=== PATIENT | male | born 1965 | race Caucasian/White ===

== ENCOUNTER 2025-01-15 17:34 | Inpatient (IN) ==
[2025-01-15 18:03] LABS: Basophils # (auto) 0.09 K/uL (0.00-0.20); Basophils % (auto) 1.3 %; Eosinophils # (auto) 0.07 K/uL (0.00-0.50); Hematocrit (blood only) 24.4 % (42.0-52.0); Immature Granulocytes # (auto) 0.13 K/uL (0.01-0.20); Immature Granulocytes % (auto) 1.8 %; Lymphocytes # (auto) 0.85 K/uL (1.20-3.40); Mean Corpuscular Hemoglobin 22.2 pg (25.0-34.0); Mean Corpuscular Hgb Conc 32.8 g/dL (32.0-36.0); Mean Corpuscular Volume 67.8 fL (80.0-100.0); Monocytes # (auto) 0.75 K/uL (0.11-0.59); Monocytes % (auto) 10.5 %; Neutrophils # (auto) 5.22 K/uL (1.40-6.50); Neutrophils % (auto) 73.4 %; RDW Coefficient of Variation 15.1 % (11.5-14.5); RDW Standard Deviation 37.1 fL (36.4-46.3); White Blood Count 7.11 K/ul (4.8-10.8)
[2025-01-15 18:09] LABS: Mean Platelet Volume 7.8 fL (9.4-12.4); Platelet Count 542 K/uL (130-400)
[2025-01-15 18:20] LABS: Albumin Level 3.9 gm/dl (3.4-5.0); Bilirubin,Total 0.2 mg/dl (0.2-1.0); Calcium 8.9 mg/dl (8.6-10.3); Creatinine Clr Calc Pharmacy 89.6 ml/min; Globulin 3.8 gm/dl (2.5-4.0); Total Protein 7.7 gm/dl (6.0-8.3)
[2025-01-15 18:29] LABS: Microcytosis Present; Polychromasia 1+
--- NOTE | 2025-01-15 18:39 | Emergency Department Note ---
Impression & Plan Acute hyponatremia, Acute hyperkalemia, Weakness, Anemia ED Provider Note NAME: ETTA [id number] NAE AGE: 59 SEX: M : 1965 ARRIVES VIA: Walk-In INFORMANT: Patient, ED PROVIDER(S): Torey Rosenbaum DO CHIEF COMPLAINT: Generalized weakness HPI: The patient is a 59-year-old male who presented to the emergency department for an evaluation of generalized weakness. The patient has been having labs as an outpatient done. He was noted to have low sodium and was sent to the emergency department today for further evaluation. He states he does not drink too much water during the day but drinks about 6 glasses of water a day. He denies having any recent illnesses. He is currently being treated for a small abrasion above his right eye. He denies having any vomiting. He denies having any chest pain. ROS: See above HPI for pertinent positives & negatives. A total of 10 systems reviewed and were otherwise negative. PAST MEDICAL HISTORY: See Below PAST SURGICAL HISTORY: See Below FAMILY HISTORY: See Below SOCIAL HISTORY: See Below HOME MEDICATIONS: See Below ALLERGIES: See Below VITALS: See Below PHYSICAL EXAMINATION: GENERAL: Patient is awake alert in no acute distress patient is resting comfortably and showing no signs of anxiety EYES: The conjunctivae are clear. The pupils are round and reactive. EARS, NOSE, MOUTH AND THROAT: The nose is without any evidence of any deformity. NECK: The neck is nontender and supple. RESPIRATORY: Diminished breath sounds are noted in the left upper lung field. There is no tachypnea or conversational dyspnea. CARDIOVASCULAR: Regular rate and rhythm noted there no murmurs rubs or gallops normal S1 normal S2. GASTROINTESTINAL: The abdomen is soft. Abdomen is nontender. MUSCULOSKELETAL/EXTREMITIES: There is no evidence of gross deformity full range of motion is noted in the hips and shoulders. SKIN: There is no obvious evidence of any rash. There are no petechiae, pallor or cyanosis noted. NEUROLOGIC: Patient is awake alert and oriented x3 strength is symmetric patellar reflexes are 1+ bilaterally MEDICAL DECISION MAKING: The patient is a 59-year-old male who presented to the emergency department for an evaluation of generalized weakness. The patient has had some degree of hyponatremia recently. He was sent to the emergency department because of worsening hyponatremia. I discussed the patient's laboratory and radiographic studies with him. He does have a history of psychiatric illness. There was some discussion as to whether or not this could be psychogenic polydipsia but the patient denies this. Given the patient's degree of hyponatremia I discussed his condition with the on-call [facility] hospitalist. They have agreed to evaluate the patient in the emergency department. Triage Nursing notes reviewed. Prior medical records reviewed Vital Signs: reviewed and remarkable for elevated blood pressure and tachycardia. Differential diagnosis: Infection, dehydration, metabolic abnormality, hypo/hyperglycemia, electrolyte disturbance, anemia, hypoxia, cardiac sources, intracerebral event, toxicologic, neurologic, as well as other pathologies. ER treatment provided: See below Diagnostics interpreted by me: ECG: EKG was obtained in the emergency department. My interpretation is sinus tachycardia at 103 bpm. There is no ectopy. There is no acute ST segment abnormalities noted. This was compared to a tracing from July 07, 2019. There was an increase in the rate otherwise no changes noted. Cardiac Monitoring: An order was placed for continuous cardiac monitoring. The monitor shows a rate of 98 bpm with sinus rhythm. Laboratory studies: As stated above and show below. Imaging studies: See below. Radiographic imaging was reviewed by myself Consultation(s): Dr. Bland was notified about the patient. Past Med/Surg History Problem List (Updated 01/15/25 @ 19:36 by Torey Rosenbaum DO) Anemia (Acute) Weakness (Acute) Acute hyperkalemia (Acute) Acute hyponatremia (Acute) Ventricular tachycardia (Acute) Chest pain (Acute) Hyperlipidemia (Chronic) Headache (Acute) COPD (chronic obstructive pulmonary disease) (Chronic) Social History Smoking Status: Current every day smoker Tobacco Type: Smokeless Tobacco (Dip or Chew) Preferred Language: Lao Allergies Allergies Allergy/AdvReac Type Severity Reaction Status Date / Time codeine Allergy Severe TONGUE Verified 06/22/16 18:01 SWELLS, MORPHINE, HYDROCODONE OK Penicillins Allergy Unknown Verified 06/22/16 18:01 Home Meds Home Medications Medication Instructions Recorded Confirmed Albuterol (Ventolin) 2 puff inhalation Q6HR PRN ##0 03/21/09 Trazodone Hcl (Trazodone) 200 mg PO HS ##0 03/21/09 Aspirin (Aspirin EC Low Dose) 81 mg PO DAILY ##0 05/30/15 BUSPIRONE HCL (BUSPAR) 15 mg PO BID #0 tabs 05/30/15 CICLESONIDE (ALVESCO) 1 puff inhalation BID ##0 05/30/15 IPRATROPIUM-ALBUTEROL (DUONEB) 1 amp inhalation Q4H PRN Shortness 05/30/15 of Breath #0 inhalations Levothyroxine Sodium (Synthroid) 175 mcg PO DAILY ##0 05/30/15 NIACIN (NIACIN SR) 250 mg PO HS ##0 05/30/15 Paroxetine (Paroxetine HCl) 20 mg PO DAILY ##0 05/30/15 Ranitidine (Zantac) 150 mg PO BID #0 tabs 05/30/15 Risperidone (Risperdal) 1.5 mg PO HS #0 tabs 05/30/15 Tiotropium Corning (Spiriva 1 puff inhalation DAILY #0 Inhalers 05/30/15 Handihaler) Results & Data (ED) Vital Signs Vital Signs - 24 hr 01/15/25 17:39 01/15/25 18:42 01/15/25 18:46 Temperature 36.7 C Temperature Source Skin Pulse Rate 107 H 95 H Pulse Rate [Apical] 103 H Respiratory Rate 16 20 Respiratory Effort / Characteristics Non-Labored Spontaneous Respiratory Depth Normal Respiratory Pattern Regular Blood Pressure 150/84 H Blood Pressure [Right Arm] 142/77 H Blood Pressure Mean 106 Blood Pressure Mean [Right Arm] 98 Pulse Oximetry 95 98 Oxygen Delivery Method Room Air Room Air Sepsis Recent Fever Within 48 Hours No Sepsis New/Unexplained Change in Mental Status N/A Sepsis Action Taken by Nursing No Action Required Home Medications Current Medication List: was personally reviewed by me Laboratory Data Attestation: I reviewed the patient's lab results. 01/15/25 17:47 01/15/25 17:47 Lab Results 01/15/25 Range/Units 17:47 WBC 7.11 (4.8-10.8) K/ul RBC 3.60 L (4.70-6.10) M/uL Hgb 8.0 L (14.0-18.0) g/dl Hct 24.4 L (42.0-52.0) % MCV 67.8 L (80.0-100.0) fL MCH 22.2 L (25.0-34.0) pg MCHC 32.8 (32.0-36.0) g/dL RDW Std Deviation 37.1 (36.4-46.3) fL RDW Coeff of Morris 15.1 H (11.5-14.5) % Plt Count 542 H (130-400) K/uL MPV 7.8 L (9.4-12.4) fL Immature Gran % (Auto) 1.8 % Neut % (Auto) 73.4 % Lymph % (Auto) 12.0 % Ballard % (Auto) 10.5 % Eos % (Auto) 1.0 % Baso % (Auto) 1.3 % Neut # (Auto) 5.22 (1.40-6.50) K/uL Lymph # (Auto) 0.85 L (1.20-3.40) K/uL Ballard # (Auto) 0.75 H (0.11-0.59) K/uL Eos # (Auto) 0.07 (0.00-0.50) K/uL Baso # (Auto) 0.09 (0.00-0.20) K/uL Immature Gran # (Auto) 0.13 (0.01-0.20) K/uL Polychromasia 1+ Microcytosis Present Sodium 117 L* (136-145) mmol/L Potassium 6.0 H (3.5-5.1) mmol/L Chloride 88 L (98-107) mmol/L Carbon Dioxide 25 (21-32) mmol/L Anion Gap 4 (3-11) BUN 16 (6-23) mg/dl Creatinine 0.94 (0.6-1.4) mg/dl Est Cr Clr Drug Dosing 89.6 ml/min eGFR 94.55 BUN/Creatinine Ratio 17.0 (10-20) Glucose 186 H (70-99(Fasting)) mg/dl Osmolality 256 L (280-300) mOsm/kg Calcium 8.9 (8.6-10.3) mg/dl Total Bilirubin 0.2 (0.2-1.0) mg/dl AST 113 H (13-39) U/L ALT 76 H (7-52) U/L Alkaline Phosphatase 117 H (34-104) U/L Total Protein 7.7 (6.0-8.3) gm/dl Albumin 3.9 (3.4-5.0) gm/dl Globulin 3.8 (2.5-4.0) gm/dl Albumin/Globulin Ratio 1.0 (0.9-2) Imaging Data Attestation: I personally reviewed and interpreted this imaging study as follows: My Impression: 1 view chest x-ray was obtained in the emergency department. My interpretation is no free air or definite filtrate, final report below. Radiologist's Impression: Chest X-Ray 01/15/25 18:30 INDICATION: Chest pain. TECHNIQUE: Frontal radiograph of the chest. COMPARISON: Radiograph from 06/20/2016. FINDINGS: Cardiomegaly. Mild pulmonary vascular congestion. No infiltrate, pleural effusion or pneumothorax. No acute osseous abnormality evident. IMPRESSION: Mild pulmonary vascular congestion. Electronically signed by David Prieto 01-15-2025 6:57 PM Discharge Plan Visit Data Chief Complaint: Abnormal Labs/Diagnostic Testing Stated Complaint: LOW SODIUM ED Provider: Torey Rosenbaum Discharge Problem: Acute hyponatremia, Acute hyperkalemia, Weakness, Anemia Patient Disposition: Being Evaluated by Hospitalist Forms Stand Alone Forms: My [facility] Prescriptions Prescriptions: No Action Albuterol (Ventolin) inhaler 2 puff Inhalation Q6HR PRN Qty: 0 Trazodone Hcl (Trazodone) 100 MG tablet 200 mg PO HS Qty: 0 Patient Comments: CRUSH 2 TABLETS AT BEDTIME CICLESONIDE (ALVESCO) 160 MCG/ACT AER 1 puff Inhalation BID Qty: 0 Aspirin (Aspirin EC Low Dose) 81 MG ENTERIC COATED TAB 81 mg PO DAILY Qty: 0 BUSPIRONE HCL (BUSPAR) 15 MG tablet 15 mg PO BID Qty: 0 Patient Comments: CRUSH TABLET Levothyroxine Sodium (Synthroid) 175 MCG tablet 175 mcg PO DAILY Qty: 0 NIACIN (NIACIN SR) 250 MG capsule 250 mg PO HS Qty: 0 Paroxetine (Paroxetine HCl) 20 MG tablet 20 mg PO DAILY Qty: 0 Risperidone (Risperdal) 0.5 MG tablet 1.5 mg PO HS Qty: 0 Patient Comments: CRUSH 3 TABLET AT BEDTIME Tiotropium Corning (Spiriva Handihaler) 18 MCG/ AEROSOL,POWDR 1 puff Inhalation DAILY Qty: 0 Ranitidine (Zantac) 150 MG tablet 150 mg PO BID Qty: 0 IPRATROPIUM-ALBUTEROL (DUONEB) 3 ML NEBULIZR-SOLN 1 amp Inhalation Q4H PRN (Reason: Shortness of Breath) Qty: 0 Referrals Referrals: [facility] [Primary Care Provider] -
--- NOTE | 2025-01-15 18:57 | XRay Report ---
INDICATION: Chest pain. TECHNIQUE: Frontal radiograph of the chest. COMPARISON: Radiograph from 06/20/2016. FINDINGS: Cardiomegaly. Mild pulmonary vascular congestion. No infiltrate, pleural effusion or pneumothorax. No acute osseous abnormality evident. IMPRESSION: Mild pulmonary vascular congestion. Electronically signed by David Prieto 01-15-2025 6:57 PM
--- NOTE | 2025-01-15 19:37 | History & Physical Report ---
Date of Service January 15, 2025 Assessment & Plan (1) Acute hyponatremia: (2) Acute hyperkalemia: (3) COPD (chronic obstructive pulmonary disease): (4) Hyperlipidemia: (5) Anemia: (6) T2DM (type 2 diabetes mellitus): (7) Mood disorder: Plan 59 yo male PMHx T2DM, bipolar disorder, hypothyroidism, T2DM, COPD, GERD presents from [facility] for ~one week history of dizziness, GARCIA, and fatigue found to to have lab abnormalities. 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 Will hold depakote Urine legionella ordered Fluid restriction 1L Salt tabs ordered Serial BMP #Hyperkalemia Given D50 and 10U insulin Started on Lokelma Serial BMP #Anemia Unclear etiology FOB ordered Will order iron studies Denies hematuria or melena #Mood Disorder Continue Lamictal Depakote held as above Continue home hydroxyzine, mirtazipine #T2DM Continue metformin #COPD Continue home inhalers, montelukast #GERD Continue pantoprazole #Hypothyroidism Continue synthroid FENGI: T2DM diet, fluid restriction 1L Code status: full code DVT prophylaxis: Lovenox Isolation: none Disposition: PCU History of Present Illness Primary Care Provider: JITENDRA Stantonshanell 59 yo male PMHx T2DM, bipolar disorder, hypothyroidism, T2DM, COPD, GERD presents from [facility] for ~one week history of dizziness, GARCIA, and fatigue found to to have lab abnormalities. Had labs checked at the [facility] one week ago and was found to be hyponatremic. States that he had been in his usual state of health without dietary or medication changes. ED course: Found to be hyponatremic, hyperkalemic, hypochloremic, transaminitis and with thrombocytosis on labs. EKG without changes Allergies Allergy/AdvReac Type Severity Reaction Status Date / Time codeine Allergy Severe TONGUE Verified 01/15/25 21:31 SWELLS, MORPHINE, HYDROCODONE OK Penicillins Allergy Unknown Unknown Verified 01/15/25 21:31 Home Medications Medication Instructions Recorded Confirmed Type acetaminophen 500 mg tablet 1,000 mg PO BID 01/15/25 01/15/25 History albuterol sulfate 90 mcg/actuation 2 puff inhalation QID PRN 01/15/25 01/15/25 History aerosol inhaler DIRECTED aspirin 325 mg tablet 325 mg PO DAILY 01/15/25 01/15/25 History calcium 600 mg (as 1 tab PO BID 01/15/25 01/15/25 History carbonate)-vitamin D3 10 mcg (400 unit) tablet (Calcium 600 + D(3)) capsaicin 0.025 % topical cream 1 applic topical BID PRN Pain 01/15/25 01/15/25 History ciclesonide 160 mcg/actuation 1 puff inhalation BID 01/15/25 01/15/25 History aerosol inhaler (Alvesco) diclofenac sodium 100 mg 100 mg PO BID PRN Pain 01/15/25 01/15/25 History tablet,extended release 24 hr divalproex 250 mg tablet,delayed 250 mg PO BID 01/15/25 01/15/25 History release divalproex 250 mg tablet,delayed See Rx Instructions .Route .COMPLEX 01/15/25 01/15/25 History release docusate sodium 100 mg capsule 100 mg PO BID 01/15/25 01/15/25 History duloxetine 60 mg capsule,delayed 60 mg PO HS 01/15/25 01/15/25 History release hydroxyzine pamoate 50 mg capsule 150 mg PO HS 01/15/25 01/15/25 History lamotrigine 25 mg tablet (Lamictal) 25 mg PO DAILY 01/15/25 01/15/25 History levothyroxine 100 mcg tablet 100 mcg PO QAM 01/15/25 01/15/25 History levothyroxine 75 mcg tablet 75 mcg PO QAM 01/15/25 01/15/25 History metformin 1,000 mg tablet 1,000 mg PO BID 01/15/25 01/15/25 History metformin 500 mg tablet 500 mg PO .DAILY AT NOON 01/15/25 01/15/25 History mirtazapine 15 mg tablet 15 mg PO HS 01/15/25 01/15/25 History montelukast 10 mg tablet 10 mg PO DAILY 01/15/25 01/15/25 History pantoprazole 40 mg tablet,delayed 40 mg PO DAILY 01/15/25 01/15/25 History release tamsulosin 0.4 mg capsule 0.4 mg PO QPM 01/15/25 01/15/25 History umeclidinium 62.5 mcg/actuation 1 inh inhalation DAILY 01/15/25 01/15/25 History blister powder for inhalation (Incruse Ellipta) Past Med/Surg History Problem List (Updated 01/16/25 @ 00:33 by Mejia Arreaga DO) Mood disorder T2DM (type 2 diabetes mellitus) Anemia (Acute) Weakness (Acute) Acute hyperkalemia (Acute) Acute hyponatremia (Acute) Ventricular tachycardia (Acute) Chest pain (Acute) Hyperlipidemia (Chronic) Headache (Acute) COPD (chronic obstructive pulmonary disease) (Chronic) Social History Smoking Status: Never smoker Tobacco Type: Smokeless Tobacco (Dip or Chew) Second Hand Exposure: No; Do You Dip or Chew Tobacco: Yes; Tobacco Cessation Education Requested by Patient: No Hx Alcohol Use: No Hx Substance Use: No Preferred Language: Fijian Communication Ability: Effective Hammer Driver Required: No Beliefs That Will Affect Care: None Current Living Situation: Other Other Information That Helps Us Care for You: No Feels Safe at Home: Yes Safety Concerns: Feels Safe At This Time Assistive Devices: None Review of Systems Review of Systems: reviewed, per HPI Physical Exam Physical Exam: Constitutional: well-appearing, no acute distress HEENT: NCAT, no conjunctival injection CV: regular rhythm, no murmur appreciated, extremities well-perfused, no LE edema Resp: CTABL, no wheezes/rales/rhonchi appreciated, no increased work of breathing GI: nondistended MSK: no gross deformities appreciated Skin: warm, dry, no rash appreciated Neuro: alert, oriented, no focal neurologic deficit appreciated Results & Data Results & Data Vital Signs (Past 12 Hours) Vital Signs Temp Pulse Pulse Resp BP BP Pulse Ox 01/15/25 18:46 103 H 20 142/77 H 98 01/15/25 18:42 95 H 01/15/25 17:39 36.7 C 107 H 16 150/84 H 95 O2 Del Method 01/15/25 18:46 Room Air 01/15/25 18:42 01/15/25 17:39 Room Air Supervising Physician Co-Signing Physician Notes I personally saw and examined the patient. I independently reviewed the labs, EKG, imaging, problem list, medication list, past medical history and family history. I verified all rios points and agree with resident physician Dr Mejia Arreaga DO with the following exceptions and/or additions: 59 year old male presents to the ER with abnormal labs. Worsening hyponatremia over days. Currently not having any symptoms following hypertonic saline, nausea and dizziness prior to this. No melena, hematochezia, hematemesis, hemoptysis O/E HS RRR, no murmurs, Chest CTAB, Abdo SNT, no CVA tenderness A/P Hyponatremia / SIADH - likely related to Depakote, will discontinue. TSH WNL, Cortisol with AM labs. Repeat labs following hypertonic saline 3% 100ml. Fluid restrict. Start NaCl PO tomorrow pending repeat labs overnight Hyperkalemia - Insulin/Dextrose, Lokelma, repeat levels following this Elevated LFTs - suspect also secondary to Depakote, stop acetaminophen, US liver, repeat levels in AM with INR Microcytic anemia - ferritin, iron studies with AM labs, FOB Resident Activity Tracking Resident Involvement: Resident Care Provided Care Provided: Adult Hospital Medicine
[2025-01-15] MEDS ORDERED: DEXTROSE 50% 50 ML SYRINGE IV ONE (20:40)
[2025-01-15] MEDS ORDERED: LANTUS PER UNIT CHARGE SQ ONE (20:41)
[2025-01-15] MEDS ORDERED: STAT IV/IM STA (20:42)
[2025-01-15] MEDS ORDERED: SODIUM CHLORIDE 0.9% 1,000 ML IV SCH (20:45)
[2025-01-15] MEDS: DEXTROSE 50% 50 ML SYRINGE IV STA (21:01)
[2025-01-15] MEDS: INSULIN HUMAN REGULAR PER UNIT 10 UNITS in SYRINGE 9.9 ML IV STA (21:04)
[2025-01-15] MEDS: SODIUM ZIRCONIUM CYCLOSILICATE 10 GM PACKET PO STA (21:05)
[2025-01-15] MEDS: SODIUM CHLORIDE 3 % 100 ML IV STA (21:06)
[2025-01-15 21:18] LABS: Appearance Urine Clear (Clear); Bilirubin Urine Negative (Negative); Blood Urine Negative (Negative); Color Urine Yellow; Glucose Urine UA 1+ (Negative); Ketones Urine Negative (Negative); Leukocyte Esterase Urine Negative (Negative); Nitrite Urine Negative (Negative); Protein Urine Negative (Negative); Specific Gravity Urine 1.009 (1.000-1.030); Urobilinogen Urine Negative (Negative); pH Urine 7.5 (4.5-7.5)
[2025-01-15] MEDS ORDERED: ALUMINUM/MAGNESIUM SUSP 30 ML UDC PO PRN (22:13)
[2025-01-15] MEDS ORDERED: POLYETHYLENE (MIRALAX) 17 GM PACK PO PRN (22:13)
[2025-01-15] MEDS ORDERED: MAGNESIUM HYDROXIDE SUSP 30 ML UDC PO PRN (22:13)
[2025-01-15] MEDS ORDERED: ONDANSETRON INJ 2 MG/ML 2 ML VIAL IV PRN (22:13)
[2025-01-15] MEDS: CARBOHYDRATES FOR HYPOGLYCEMIA PO PRN (22:17)
[2025-01-15] MEDS ORDERED: GLUCAGON FOR INJ 1 MG VIAL SQ PRN (22:27)
[2025-01-15] MEDS ORDERED: DEXTROSE 50% 50 ML SYRINGE IV PRN (22:27)
[2025-01-15] MEDS ORDERED: GLUCOSE 10 TAB/TUBE PO PRN (22:27)
[2025-01-15] MEDS ORDERED: GLUCOSE 40% GEL 15 GM TUBE PO PRN (22:27)
[2025-01-15] MEDS: ACETAMINOPHEN 500 MG TAB PO PRN (22:30)
[2025-01-15 22:45] LABS: Thyroid Stimulating Hormone 2.845 uIu/ml (0.300-4.500)
[2025-01-15] MEDS: ENOXAPARIN INJ 40 MG/0.4 ML SYR SQ SCH (22:57)
[2025-01-16 01:40] LABS: BUN Creatinine Ratio 13.6 (10-20); Calcium 9.2 mg/dl (8.6-10.3); Creatinine Clr Calc Pharmacy 94.3 ml/min; Potassium 5.9 mmol/L (3.5-5.1)
[2025-01-16 01:53] LABS: Prothrombin Time 10.7 Seconds (9.0-12.0)
--- NOTE | 2025-01-16 03:21 | Billing Data ---
Date of Service January 15, 2025 Coding Level of Care Code 06700 INT INP/OBS CARE
[2025-01-16] MEDS: LEVOTHYROXINE SODIUM 75 MCG TABLET PO SCH (05:49)
[2025-01-16] MEDS: LEVOTHYROXINE SODIUM 100 MCG TABLET PO SCH (05:49)
--- NOTE | 2025-01-16 07:25 | Hospitalist Progress Note ---
Date of Service January 16, 2025 Assessment & Plan (1) Acute hyponatremia: (2) Acute hyperkalemia: (3) COPD (chronic obstructive pulmonary disease): (4) Hyperlipidemia: (5) Anemia: (6) T2DM (type 2 diabetes mellitus): (7) Mood disorder: Plan 59 yo male PMHx T2DM, bipolar disorder, hypothyroidism, COPD, GERD presents from [facility] for ~one week history of dizziness, GARCIA, and fatigue found to to have lab abnormalities. 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 Hold Depakote -Trend daily #Mood Disorder Continue Lamictal Depakote held as above Continue home hydroxyzine, mirtazapine #T2DM -Continue metformin #COPD -Continue home inhalers, montelukast #GERD -Continue pantoprazole #Hypothyroidism -Continue Synthroid FENGI: T2DM diet, fluid restriction 1L Code status: full code DVT prophylaxis: Lovenox Isolation: none Disposition: PCU Admission and Anticipated Discharge Date Admission Date: January 15, 2025 Supervising Physician Co-Signing Physician Notes Attending attestation Pt seen and examined in concert with Dr. Hinkle. In agreement with the documented findings as noted in the resident documentation with any exceptions or additions as noted here. Improved occiput headache following position change and APAP. On examination, S1/S2 nl RRR no MCG. CTAB. Abd NT/ND BS+ve Hyponatremia, severe - continue q4h BMP and consider ongoing hypertonic saline bolus in 100mL increments until sodium approaches 4-6 mmol/L improvement over 24 hours. Continue restriction, salt tabs. Hyperkalemia - s/p D50/Insulin and Lokelma x 1 and downtrending, continue to monitor Iron deficiency anemia, unknown cause - FOBT pending. Consider evaluation for celiac disease if FOBT WNL Transaminitis - unknown etiology, RUQ US as noted. Hepatitis labs pending. Else see resident documentation as noted. Subjective Overnight events: No any .Couldn't sleep well. Mentions he has chronic issues of Insomnia Ongoing symptoms: Still has headache mostly in parietal and occipital region, feels like pushing his eyes, rates 7 out of 10, he mentioned it was even worse before coming here 06/10. Still feels dizzy,week and fatigue. Denies fever but sweating a lot. Has cough with phlegm production. Denies confusion, difficulty in breathing, chest pain, abdominal pain nausea and vomiting, hematochezia, hematemesis, melena . He mentions his appetite is decreased since a week. Normal bowel and bladder habit. New concerns: No any Review of Systems Review of Systems: As per HPI Physical Exam Constitutional: WD/WN, vitals as above well developed; no acute distress Eyes: PERRL, conjunctivae normal, anicteric sclerae ENMT: external ear and nose normal, oropharynx normal Ears: no hearing impairment Neck: trachea midline, no thyromegaly trachea midline Respiratory: normal respiratory effort, lungs clear to auscultation normal respiratory effort and + respiratory distress; no labored breathing and no retractions Auscultation: lungs clear to auscultation bilaterally Cardiovascular: RRR, no murmur, no edema Rate/Rhythm: regular rate and regular rhythm Chest (Breasts): normal inspection/palpation of breasts Chest: normal inspection of chest Results & Data Results & Data Vital Signs (Past 12 Hours) Vital Signs Temp Pulse Pulse Resp BP BP Pulse Ox 01/16/25 07:06 37.1 C 95 H 18 146/85 H 97 01/16/25 04:29 37.1 C 22 131/80 99 01/15/25 22:48 104 H 01/15/25 22:10 01/15/25 22:10 36.8 C 111 H 20 146/80 H 94 01/15/25 21:30 104 H 25 H 149/90 H 100 01/15/25 21:01 150/92 H 01/15/25 21:00 96 H 20 100 01/15/25 20:30 98 H 24 133/101 H 100 01/15/25 20:03 98 H 22 98 01/15/25 20:00 128/90 O2 Del Method 01/16/25 07:06 Room Air 01/16/25 04:29 Room Air 01/15/25 22:48 01/15/25 22:10 Room Air 01/15/25 22:10 Room Air 01/15/25 21:30 01/15/25 21:01 01/15/25 21:00 01/15/25 20:30 01/15/25 20:03 01/15/25 20:00
--- NOTE | 2025-01-16 08:31 | Ultrasound Report ---
EXAM: US liver CLINICAL HISTORY: elevated LFTs. TECHNIQUE: Ultrasound examination of the RUQ was performed. Scanning was performed with the patient in the supine position. The following structures were specifically evaluated: COMPARISON: None available. FINDINGS: Liver: Liver size: Normal in size, measures 15.6 cm and shows homogeneous echotexture. No evidence of focal lesions, cysts, or masses. Hepatic vasculature appears normal. Gallbladder: Gallbladder size: The Gallbladder is distended and appears normal.Wall thickness 2.3 mm. No gallstones, wall thickening, or pericholecystic fluid noted. No evidence of gallbladder wall edema or signs of acute cholecystitis. Biliary Tree: Common bile duct diameter: Measures 4 mm. Common bile duct is within normal limits in caliber and not dilated. No evidence of choledocholithiasis or biliary obstruction. Right Kidney: Right kidney size: 11.7 x 5.4 x 5.5 cm. The right kidney appears normal in size with preserved corticomedullary differentiation. Fullness of the right renal pelvis. No evidence of renal cysts, or masses. IMPRESSION: 1. Fullness of the right renal pelvis. Clinical correlation is needed. 2. Normal findings in the liver, gallbladder, and biliary tree. 3. No evidence of acute pathology seen. RECOMMENDATIONS: Clinical correlation with symptoms and further evaluation as indicated. Electronically signed by Vaughn Hale 01-16-2025 08:31 AM
[2025-01-16] MEDS ORDERED: ACETAMINOPHEN 500 MG TAB PO SCH (09:00)
[2025-01-16] MEDS: ASPIRIN 325 MG ECTAB PO SCH (09:03)
[2025-01-16] MEDS: metFORMIN HCL 500 MG TAB PO SCH ×2 (09:03→11:09)
[2025-01-16] MEDS: DICLOFENAC SODIUM 75 MG TABCR PO PRN (09:04)
[2025-01-16] MEDS: UMECLIDINIUM BROMIDE 62.5MCG/BLISTER 7 PUFFS/INHALER INH SCH (09:05)
[2025-01-16] MEDS: SODIUM CHLORIDE 1 GM TABLET PO SCH (09:05)
[2025-01-16] MEDS: MONTELUKAST SODIUM 10 MG TABLET PO SCH (09:05)
[2025-01-16] MEDS: lamoTRIgine 25 MG TAB PO SCH (09:05)
[2025-01-16] MEDS: FLUTICASONE FUROATE 200MCG 14 PUFFS/INHALER INH SCH (09:06)
[2025-01-16] MEDS: PANTOprazole 40 MG TAB PO SCH (09:10)
[2025-01-16] MEDS: DOCUSATE SODIUM 100 MG CAP PO SCH (09:10)
[2025-01-16 09:23] LABS: Basophils % (auto) 1.3 %; Eosinophils # (auto) 0.01 K/uL (0.00-0.50); Eosinophils % (auto) 0.1 %; Hematocrit (blood only) 27.3 % (42.0-52.0); Hemoglobin 8.8 g/dl (14.0-18.0); Immature Granulocytes # (auto) 0.12 K/uL (0.01-0.20); Immature Granulocytes % (auto) 1.6 %; Lymphocytes % (auto) 12.1 %; Mean Corpuscular Hemoglobin 22.2 pg (25.0-34.0); Mean Corpuscular Hgb Conc 32.2 g/dL (32.0-36.0); Mean Corpuscular Volume 68.8 fL (80.0-100.0); Monocytes # (auto) 0.86 K/uL (0.11-0.59); Monocytes % (auto) 11.5 %; Neutrophils # (auto) 5.46 K/uL (1.40-6.50); Neutrophils % (auto) 73.4 %; RDW Coefficient of Variation 15.1 % (11.5-14.5); RDW Standard Deviation 37.5 fL (36.4-46.3); Red Blood Count 3.97 M/uL (4.70-6.10); White Blood Count 7.45 K/ul (4.8-10.8)
[2025-01-16 09:36] LABS: Albumin Globulin Ratio 0.8 (0.9-2); Albumin Level 3.7 gm/dl (3.4-5.0); BUN Creatinine Ratio 11.5 (10-20); Bilirubin,Total 0.2 mg/dl (0.2-1.0); Calcium 9.3 mg/dl (8.6-10.3); Creatinine Clr Calc Pharmacy 106.3 ml/min; Globulin 4.4 gm/dl (2.5-4.0); Potassium 5.3 mmol/L (3.5-5.1); Total Protein 8.1 gm/dl (6.0-8.3)
[2025-01-16 09:48] LABS: Mean Platelet Volume 8.1 fL (9.4-12.4); Microcytosis Present; Platelet Count 589 K/uL (130-400)
[2025-01-16 10:01] LABS: Ferritin 32.7 ng/ml (8-388)
[2025-01-16] MEDS: SODIUM CHLORIDE 3 % 100 ML IV ONE ×3 (11:06→18:43)
[2025-01-16] MEDS: NICOTINE 14 MG/24 HR PATCH TD SCH (11:07)
[2025-01-16] MEDS: STAT IV/IM STA (11:30)
[2025-01-16 13:45] LABS: BUN Creatinine Ratio 10.8 (10-20); Calcium 9.5 mg/dl (8.6-10.3); Creatinine Clr Calc Pharmacy 89.1 ml/min; Potassium 5.5 mmol/L (3.5-5.1)
--- NOTE | 2025-01-16 14:14 | Electrocardiogram Report ---
Test Reason : Blood Pressure : */* mmHG Vent. Rate : 103 BPM Atrial Rate : 103 BPM P-R Int : 142 ms QRS Dur : 92 ms QT Int : 322 ms P-R-T Axes : 26 -20 64 degrees QTcB Int : 421 ms Sinus tachycardia Otherwise normal ECG When compared with ECG of 22-Jun-2016 19:49, T wave inversion no longer evident in Inferior leads Confirmed by Allan Uribe ([id number]) on 01/16/2025 2:14:32 PM Referred By: [facility] Confirmed By: Allan Uribe
[2025-01-16] MEDS ORDERED: IBUPROFEN 200 MG TAB PO STA (15:26)
[2025-01-16 15:29] LABS: BUN Creatinine Ratio 11.8 (10-20); Creatinine Clr Calc Pharmacy 89.1 ml/min; Potassium 5.4 mmol/L (3.5-5.1)
[2025-01-16 18:34] LABS: Anion Gap 5 (3-11); BUN Creatinine Ratio 14.2 (10-20); Blood Urea Nitrogen 15 mg/dl (6-23); Calcium 8.8 mg/dl (8.6-10.3); Carbon Dioxide 23 mmol/L (21-32); Chloride 90 mmol/L (98-107); Creatinine Clr Calc Pharmacy 78.2 ml/min; Glucose 186 mg/dl (70-99(Fasting)); Sodium 118 mmol/L (136-145)
[2025-01-16] MEDS ORDERED: STAT IV/IM STA (18:36)
[2025-01-16] MEDS: MIRTAZAPINE TAB 15 MG TAB PO SCH (20:00)
[2025-01-16] MEDS: DULoxetine HCL 60 MG CAP PO SCH (20:00)
[2025-01-16] MEDS: TAMSULOSIN HCL 0.4 MG CAP PO SCH (20:00)
[2025-01-16] MEDS: hydrOXYzine HCl 25 MG TAB PO SCH (20:00)
[2025-01-16 22:59] LABS: Calcium 9.4 mg/dl (8.6-10.3)
[2025-01-16 23:05] LABS: BUN Creatinine Ratio 15.1 (10-20); Creatinine Clr Calc Pharmacy 89.1 ml/min
[2025-01-17] MEDS: CALCIUM GLUCONATE 1,000 MG/60 ML BAG IV STA (00:07)
[2025-01-17] MEDS: DEXTROSE 50% 50 ML SYRINGE IV ONE (00:08)
[2025-01-17] MEDS: INSULIN HUMAN REGULAR PER UNIT 10 UNITS in SYRINGE 9.9 ML IV ONE (00:08)
[2025-01-17] MEDS: SODIUM ZIRCONIUM CYCLOSILICATE 10 GM PACKET PO SCH (00:49)
[2025-01-17 02:52] LABS: BUN Creatinine Ratio 16.9 (10-20); Calcium 9.2 mg/dl (8.6-10.3); Creatinine Clr Calc Pharmacy 93.1 ml/min; Potassium 5.3 mmol/L (3.5-5.1)
[2025-01-17] MEDS ORDERED: STAT IV/IM STA ×2 (02:53→11:09)
[2025-01-17 03:06] LABS: Hematocrit (blood only) 27.9 % (42.0-52.0); Mean Corpuscular Hemoglobin 22.3 pg (25.0-34.0); Mean Corpuscular Hgb Conc 32.3 g/dL (32.0-36.0); Mean Corpuscular Volume 69.1 fL (80.0-100.0); Mean Platelet Volume 7.9 fL (9.4-12.4); Platelet Count 439 K/uL (130-400); RDW Coefficient of Variation 15.2 % (11.5-14.5); RDW Standard Deviation 38.2 fL (36.4-46.3); Red Blood Count 4.04 M/uL (4.70-6.10); White Blood Count 7.63 K/ul (4.8-10.8)
[2025-01-17] MEDS: SODIUM CHLORIDE 3 % 150 ML IV ONE (03:11)
[2025-01-17 07:37] LABS: Calcium 8.8 mg/dl (8.6-10.3); Potassium 5.1 mmol/L (3.5-5.1)
[2025-01-17 07:43] LABS: Creatinine Clr Calc Pharmacy 101.6 ml/min
--- NOTE | 2025-01-17 09:02 | Electrocardiogram Report ---
Test Reason : Blood Pressure : */* mmHG Vent. Rate : 122 BPM Atrial Rate : 122 BPM P-R Int : 136 ms QRS Dur : 84 ms QT Int : 284 ms P-R-T Axes : 78 -23 42 degrees QTcB Int : 404 ms Sinus tachycardia with frequent Premature ventricular complexes Otherwise normal ECG When compared with ECG of 15-Jan-2025 17:47, Premature ventricular complexes are now Present Confirmed by lAlan Uribe ([id number]) on 01/17/2025 9:02:46 AM Referred By: [facility] Confirmed By: Allan Uribe
--- NOTE | 2025-01-17 09:28 | Hospitalist Progress Note ---
Date of Service January 17, 2025 Assessment & Plan (1) Acute hyponatremia: (2) Acute hyperkalemia: (3) COPD (chronic obstructive pulmonary disease): (4) Hyperlipidemia: (5) Anemia: (6) T2DM (type 2 diabetes mellitus): (7) Mood disorder: Plan 59 yo male PMHx T2DM, bipolar disorder, hypothyroidism, COPD, GERD presents from [facility] for ~one week history of dizziness, GARCIA, and fatigue found to to have lab abnormalities. #Fever #Cellulitis of buttocks - extensive evaluation as noted without WBC. 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 Hold Depakote -Trend daily #Mood Disorder Continue Lamictal Depakote held as above Continue home hydroxyzine, mirtazapine #T2DM -Continue metformin #COPD -Continue home inhalers, montelukast #GERD -Continue pantoprazole #Hypothyroidism -Continue Synthroid FENGI: T2DM diet, fluid restriction 1L Code status: full code DVT prophylaxis: Lovenox Isolation: none Disposition: PCU Admission and Anticipated Discharge Date Admission Date: January 15, 2025 Supervising Physician Co-Signing Physician Notes Attending attestation Pt seen and examined in concert with Dr. Hinkle. In agreement with the documented findings as noted in the resident documentation with any exceptions or additions as noted here. Overnight and during AM hours today developed fevers. Ongoing mild cough present on admission w/ chest XR without PNA appreciated on admit. Reports no headache, pharyngitis, cough, congestion, PND, n/v/d/c, abd pain, rashes aside from below. On examination, S1/S2 nl RRR no MCG. CTAB. Abd NT/ND BS+ve. Healing papular/excoriated rash of the buttock without evidence of cellulitis, purported to be longstanding. Febrile illness - extensive evaluation as noted without WBC. Add HIV, hepatitis labs. Initiate broad spectrum abx therapy if biofire WNL as no source apparent. follow BCx. Hyponatremia, severe - improved following 4x hypertonic saline bolus. Will continue to trend and supplement. Continue fluid restriction and salt tabs. Hyperkalemia - continue Lokelma and monitor as continues to downtrend. Iron deficiency anemia, unknown cause - FOBT pending. Consider evaluation for celiac disease if FOBT WNL Transaminitis - unknown etiology, RUQ US as noted. Hepatitis labs pending. Else see resident documentation as noted. Subjective Overnight events: No any .Couldn't sleep well. Mentions he has chronic issues of Insomnia Ongoing symptoms: Still has headache mostly in parietal and occipital region, feels like pushing his eyes, rates 7 out of 10, he mentioned it was even worse before coming here /10. Still feels dizzy,week and fatigue. Denies fever but sweating a lot. Has cough with phlegm production. Denies confusion, difficulty in breathing, chest pain, abdominal pain nausea and vomiting, hematochezia, hematemesis, melena . He mentions his appetite is decreased since a week. Normal bowel and bladder habit. New concerns: No any Review of Systems Review of Systems: As per HPI Physical Exam Constitutional: WD/WN, vitals as above well developed; no acute distress Eyes: PERRL, conjunctivae normal, anicteric sclerae ENMT: external ear and nose normal, oropharynx normal Ears: no hearing impairment Neck: trachea midline, no thyromegaly trachea midline Respiratory: normal respiratory effort, lungs clear to auscultation normal respiratory effort and + respiratory distress; no labored breathing and no retractions Auscultation: lungs clear to auscultation bilaterally Cardiovascular: RRR, no murmur, no edema Rate/Rhythm: regular rate and regular rhythm Chest (Breasts): normal inspection/palpation of breasts Chest: normal inspection of chest Results & Data Results & Data Vital Signs (Past 12 Hours) Vital Signs Temp Pulse Pulse Resp BP Pulse Ox O2 Del Method 01/17/25 07:33 37.0 C 115 H 18 118/74 95 Room Air 01/17/25 07:24 121 H 01/17/25 04:18 37.7 C H 01/17/25 02:59 38.0 C H 118 H 18 138/77 95 Room Air 01/16/25 23:22 36.7 C 122 H 20 117/78 98 Room Air 01/16/25 22:30 98 H
[2025-01-17 10:49] LABS: Creatinine Clr Calc Pharmacy 95.2 ml/min
[2025-01-17] MEDS: ACETAMINOPHEN 325 MG TAB PO ONE (11:41)
[2025-01-17] MEDS: SODIUM CHLORIDE 3 % 100 ML IV ONE (11:43)
--- NOTE | 2025-01-17 11:49 | XRay Report ---
Clinical History: Fever and congestion Technique: A frontal view of the chest was obtained Comparison is made to the prior examination dated 01/15/2025 Findings: There are no confluent pulmonary infiltrates. The heart size is within normal limits. No pleural effusion or pneumothorax is seen. There is no definite pulmonary nodule. No fracture is noted. No foreign body is seen Impression: No active disease Electronically signed by Dilshad Robertson 01-17-2025 11:49 AM
[2025-01-17 12:15] LABS: Appearance Urine Clear (Clear); Bacteria Urine Automated None Seen (None Seen); Bilirubin Urine Negative (Negative); Blood Urine Negative (Negative); Cast Urine Automated 0-2 /lpf (0-2); Color Urine Yellow; Epithelial Cell Urine Auto 0-2 /hpf (0-2); Glucose Urine UA 1+ (Negative); Ketones Urine Trace (Negative); Leukocyte Esterase Urine Negative (Negative); Nitrite Urine Negative (Negative); Protein Urine Trace (Negative); RBC Urine Automated 0-2 /hpf (0-2); Specific Gravity Urine 1.021 (1.000-1.030); Urobilinogen Urine Negative (Negative); WBC Urine Automated 0-5 /hpf (0-5)
[2025-01-17 13:19] LABS: Adenovirus PCR Not Detected (NotDetected); Bordetella parapertussis PCR Not Detected (NotDetected); Bordetella pertussis PCR Not Detected (NotDetected); Chlamydia pneumoniae PCR Not Detected (NotDetected); Coronavirus 229E PCR Not Detected (NotDetected); Coronavirus CoV-2 (COVID19)PCR Not Detected (NotDetected); Coronavirus HKU1 PCR Not Detected (NotDetected); Coronavirus NL63 PCR Not Detected (NotDetected); Coronavirus OC43PCR Not Detected (NotDetected); Human Metapneumovirus PCR Not Detected (NotDetected); Influenza A PCR Not Detected (NotDetected); Influenza B PCR Not Detected (NotDetected); Mycoplasma pneumoniae PCR Not Detected (NotDetected); Parainfluenza Virus 1 PCR Not Detected (NotDetected); Parainfluenza Virus 2 PCR Not Detected (NotDetected); Parainfluenza Virus 3 PCR Not Detected (NotDetected); Parainfluenza Virus 4 PCR Not Detected (NotDetected); Respiratory Syncytial VirusPCR Not Detected (NotDetected); Rhinovirus/Enterovirus PCR Not Detected (NotDetected)
[2025-01-17 15:05] LABS: BUN Creatinine Ratio 21.1 (10-20); Calcium 8.7 mg/dl (8.6-10.3); Creatinine Clr Calc Pharmacy 80.2 ml/min; Potassium 4.3 mmol/L (3.5-5.1)
[2025-01-17 15:38] LABS: HIV 4th Gen(HIV 1,2 AB+p24 Ag Negative (Negative)
[2025-01-17 15:45] LABS: Hep B Surface Ag with confirm Negative (Negative)
[2025-01-17 15:51] LABS: Hep C Ab Rflx HepCQuant RNA Negative (Negative)
[2025-01-17] MEDS: cefTRIAXone SODIUM 2,000 MG/50 ML BAG IV SCH (18:11)
[2025-01-17 22:23] LABS: Calcium 8.4 mg/dl (8.6-10.3); Creatinine Clr Calc Pharmacy 92.9 ml/min; Potassium 4.6 mmol/L (3.5-5.1)
[2025-01-17 23:09] LABS: Magnesium 1.3 mg/dl (1.7-2.4)
[2025-01-17] MEDS: SODIUM CHLORIDE 1 GM TABLET PO SCH (23:30)
[2025-01-17] MEDS: MAGNESIUM SULFATE / D5W 1 GM/100 ML BAG IV SCH (23:30)
[2025-01-18 00:53] LABS: BUN Creatinine Ratio 26.9 (10-20); Calcium 8.4 mg/dl (8.6-10.3); Creatinine Clr Calc Pharmacy 97.7 ml/min; Potassium 4.5 mmol/L (3.5-5.1)
[2025-01-18 05:37] LABS: Hematocrit (blood only) 26.7 % (42.0-52.0); Hemoglobin 8.6 g/dl (14.0-18.0); Mean Corpuscular Hemoglobin 22.3 pg (25.0-34.0); Mean Corpuscular Hgb Conc 32.2 g/dL (32.0-36.0); Mean Corpuscular Volume 69.2 fL (80.0-100.0); RDW Coefficient of Variation 15.2 % (11.5-14.5); RDW Standard Deviation 38.1 fL (36.4-46.3); Red Blood Count 3.86 M/uL (4.70-6.10); White Blood Count 4.99 K/ul (4.8-10.8)
[2025-01-18 05:43] LABS: Mean Platelet Volume 7.7 fL (9.4-12.4); Platelet Count 440 K/uL (130-400)
[2025-01-18 05:50] LABS: Albumin Globulin Ratio 0.7 (0.9-2); Albumin Level 3.3 gm/dl (3.4-5.0); Bilirubin,Total 0.2 mg/dl (0.2-1.0); Calcium 8.7 mg/dl (8.6-10.3); Creatinine Clr Calc Pharmacy 105.8 ml/min; Globulin 4.5 gm/dl (2.5-4.0); Total Protein 7.8 gm/dl (6.0-8.3)
[2025-01-18 06:32] LABS: Dohle Bodies 1+; Eosinophils # (auto) 0.02 K/uL (0.00-0.50); Eosinophils % (auto) 0.4 %; Lymphocytes # (auto) 0.82 K/uL (1.20-3.40); Lymphocytes % (auto) 16.4 %; Microcytosis Present; Monocytes # (auto) 0.87 K/uL (0.11-0.59); Monocytes % (auto) 17.4 %; Neutrophils # (auto) 2.98 K/uL (1.40-6.50); Neutrophils % (auto) 59.8 %; Polychromasia 1+
--- NOTE | 2025-01-18 10:10 | Hospitalist Progress Note ---
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 -Sodium 117>119>117>119>124 -Will hold depakote -Sodium correction 6 to 8 mEq/l/day -Received 3 bolus of Hypertonic NS 100ml at the rate of 600ml/hr -Fluid restriction 1L - s/p Salt tabs - Today 01/18 Na+ improved to 124 (2) Cellulitis of buttock: Plan: Added HIV, hepatitis labs HIV negative; Hepatitis panel: pending -Respiratory Biofire Panel: Negative -Ceftriaxone 2gm q24Hr -resolving (3) Acute hyperkalemia: Plan: -Discontinue Insulin and Lokelma -Potassium: 6>5.5 - today 01/18 K+ 4.0 (4) COPD (chronic obstructive pulmonary disease): Plan: -Continue home inhalers, montelukast (5) Hyperlipidemia: Plan: -Denies hematuria, melena hematochezia or hematemesis -Unclear etiology -Hgb 8>8.8 -FOB: Sample collection pending (6) Anemia: (7) T2DM (type 2 diabetes mellitus): Plan: -con't metformin (8) Mood disorder: Plan: Continue Lamictal Depakote held as above Continue home hydroxyzine, mirtazapine Plan 59 yo male PMHx T2DM, bipolar disorder, hypothyroidism, COPD, GERD presents from [facility] for ~one week history of dizziness, GARCIA, and fatigue found to to have lab abnormalities. D/C back to [facility] once Na+ normalizes. DVT prophylaxis: Lovenox Isolation: none Admission and Anticipated Discharge Date Admission Date: January 15, 2025 Subjective No events overnight. Pt resting comfortably in bed. Intermediate guards by bedside. Review of Systems 2 Review of Systems: CONST: Negative for fever, body aches and chills. HENT: Negative for neck pain/stiffness, headache, congestion, sore throat, swelling. EYES: Negative for discharge/pain or vision changes. RESP: Negative for cough/hemoptysis and shortness of breath. CV: Negative chest pain, difficulty breathing, palpitations. ABD: Negative pain, nausea, vomiting. : Negative increase frequency, dysuria, blood in urine or stool. MUSC: Negative for muscle aches, edema. SKIN: Negative rash, lesions/sores. NEURO: Negative headache, dizziness, weakness. Physical Exam Physical Exam: GENERAL APPEARANCE NAD, activity normal for age, well developed/ well nourished, no cyanosis, pallor, or diaphoresis. EYES lids/conjunctiva normal. EARS/NOSE/THROAT Mucous membranes moist, nares normal, lips/teeth normal uvula midline without oral pharyngeal erythema, exuda te or swelling TMs normal bilaterally. No lymphangitis/lymphedema. HEAD/NECK normocephalic atraumatic, no facial trauma, neck is supple. RESPIRATORY respiratory effort normal, speaks in full sentences, no tripod position, no accessory muscle use. Lungs clear to auscultation without rhonchi, wheezes, rales CARDIAC Regular rate and rhythm, no edema. ABDOMINAL Soft, ND/NT. No evidence of fluid wave. No pulsatile masses on exam, rebound tenderness, Dawn sign or pain over Mcburney's point. MUSCLES/EXTREMITIES No abnormal range of motion, no swelling. SKIN Warm, pink and dry. No rashes, dermatoses, petechiae or lesions. NEUROLOGICAL Speech is clear and appropriate. Normal level of consciousness. Gait and coordination are normal. 5/5 strength in all extremities. PSYCH Normal mood and affect. Judgement/competence is appropriate Results & Data Results & Data Vital Signs (Past 12 Hours) Vital Signs Temp Pulse Pulse Resp BP BP Pulse Ox 01/18/25 07:00 36.6 C 86 18 125/76 98 01/18/25 03:16 37.2 C 95 H 18 101/65 98 01/18/25 01:30 37 C 01/18/25 00:09 135 H 01/17/25 23:40 37.7 C H 01/17/25 22:52 37.3 C 113 H 20 126/65 94 O2 Del Method 01/18/25 07:00 Room Air 01/18/25 03:16 Room Air 01/18/25 01:30 01/18/25 00:09 01/17/25 23:40 01/17/25 22:52 Room Air PG Care Time/CCT Total # of Minutes Spent Total Time Spent with Patient: Total time spent is greater than 50% in coordination of care (as documented) at patient's floor/unit and/or counseling patient: Coding Level of Care Code 85535 SUB INP/OBS CARE MIN Diagnoses Acute hyponatremia E87.1 Cellulitis of buttock L03.317 Acute hyperkalemia E87.5 COPD (chronic obstructive pulmonary disease) J44.9 Hyperlipidemia E78.5 Anemia D64.9 T2DM (type 2 diabetes mellitus) E11.9 Mood disorder F39
[2025-01-19 06:40] LABS: Hematocrit (blood only) 28.9 % (42.0-52.0); Hemoglobin 9.1 g/dl (14.0-18.0); Mean Corpuscular Hemoglobin 22.3 pg (25.0-34.0); Mean Corpuscular Hgb Conc 31.5 g/dL (32.0-36.0); Mean Corpuscular Volume 70.8 fL (80.0-100.0); Mean Platelet Volume 7.9 fL (9.4-12.4); Platelet Count 307 K/uL (130-400); RDW Coefficient of Variation 15.5 % (11.5-14.5); RDW Standard Deviation 39.3 fL (36.4-46.3); Red Blood Count 4.08 M/uL (4.70-6.10); White Blood Count 7.17 K/ul (4.8-10.8)
[2025-01-19 07:37] LABS: Potassium 4.9 mmol/L (3.5-5.1)
--- NOTE | 2025-01-19 07:38 | Hospitalist Progress Note ---
Date of Service January 19, 2025 Assessment & Plan (1) Acute hyponatremia: (2) Acute hyperkalemia: (3) COPD (chronic obstructive pulmonary disease): (4) Hyperlipidemia: (5) Anemia: (6) T2DM (type 2 diabetes mellitus): (7) Mood disorder: Plan 59 yo male PMHx T2DM, bipolar disorder, hypothyroidism, COPD, GERD presents from [facility] for ~one week history of dizziness, GARCIA, and fatigue found to to have lab abnormalities. #Cellulitis of buttocks - extensive evaluation as noted without WBC. 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 Hold Depakote -Trend daily #Mood Disorder Continue Lamictal Depakote held as above Continue home hydroxyzine, mirtazapine #T2DM -Continue metformin #COPD -Continue home inhalers, montelukast #GERD -Continue pantoprazole #Hypothyroidism -Continue Synthroid FENGI: T2DM diet, fluid restriction 1L Code status: full code DVT prophylaxis: Lovenox Isolation: none Disposition: PCU Admission and Anticipated Discharge Date Admission Date: January 15, 2025 Supervising Physician Co-Signing Physician Notes I personally examined the patient and verified all rios points of history and exam, discussed case, and agree with decision making with Dr Hinkle Feeling okay. Notes that he had a very poor appetite for about a month, as I was wondering about possibly some viral illness, he also noted that he had several vaccines and short order and wondered if he was feeling lousy from those. Either way he notes that over the last day or so his appetite is improved quite a bit. Overall feels well. Vitals noted, in general he is awake and alert pleasant no distress. HEENT normocephalic atraumatic mucous membranes moist. Breathing unlabored no accessory muscle use good effort. Skin without rashes pallor or icterus. Neuro no focal deficits. Labs and diagnostics noted. Febrile illness - extensive evaluationRight now possible cellulitis of his buttocks as the working diagnosis. Given no leukopenia or thrombocytopenia I doubt tickborne, but obviously keep on the differential, hep A and B are pending, hep C and HIV are negative. Fever seems to have resolved. May also have simply been nonspecific viral illness. Hyponatremia, severe - improved following 4x hypertonic saline bolus. SIADH versus poor p.o. intake versus both. Now eating better. Continue to follow. Hyperkalemia - Resolved Iron deficiency anemia, unknown cause - FOBT pending. Consider evaluation for celiac disease if FOBT WNL Transaminitis - unknown etiology, RUQ US as noted. few hepatitis serologies pending, hep C negative. Follow-up liver enzymes tomorrow. Else see resident documentation as noted. Subjective No events overnight. Pt resting comfortably in bed. [facility] guards by bedside. States he is feeling a lot better today. Headache is lot better. Denies chest pain, shortness of breath or drowsiness. Review of Systems Review of Systems: As per HPI Physical Exam Constitutional: WD/WN, vitals as above well developed; no acute distress Eyes: PERRL, conjunctivae normal, anicteric sclerae ENMT: external ear and nose normal, oropharynx normal Ears: no hearing impairment Neck: trachea midline, no thyromegaly trachea midline Respiratory: normal respiratory effort, lungs clear to auscultation normal respiratory effort and + respiratory distress; no labored breathing and no retractions Auscultation: lungs clear to auscultation bilaterally Cardiovascular: RRR, no murmur, no edema Rate/Rhythm: regular rate and regular rhythm Chest (Breasts): normal inspection/palpation of breasts Chest: normal inspection of chest Results & Data Results & Data Vital Signs (Past 12 Hours) Vital Signs Temp Pulse Pulse Resp BP BP Pulse Ox 01/19/25 07:19 37.3 C 100 H 18 136/70 96 01/19/25 02:01 36.5 C 97 H 20 116/66 97 01/18/25 23:39 97 H 01/18/25 23:17 36.7 C 74 18 107/72 93 01/18/25 20:45 01/18/25 19:55 36.9 C 86 18 132/77 97 O2 Del Method 01/19/25 07:19 Room Air 01/19/25 02:01 Room Air 01/18/25 23:39 01/18/25 23:17 Room Air 01/18/25 20:45 Room Air 01/18/25 19:55 Room Air
[2025-01-19 07:40] LABS: BUN Creatinine Ratio 28.2 (10-20); Creatinine Clr Calc Pharmacy 107.3 ml/min
--- NOTE | 2025-01-19 18:23 | Billing Data ---
Date of Service January 19, 2025 Coding Level of Care Code 61795 SUB INP/OBS CARE MIN
[2025-01-20 07:38] LABS: Basophils % (auto) 1.9 %; Eosinophils # (auto) 0.04 K/uL (0.00-0.50); Eosinophils % (auto) 0.8 %; Hematocrit (blood only) 25.9 % (42.0-52.0); Hemoglobin 8.2 g/dl (14.0-18.0); Immature Granulocytes # (auto) 0.08 K/uL (0.01-0.20); Immature Granulocytes % (auto) 1.5 %; Lymphocytes # (auto) 1.14 K/uL (1.20-3.40); Lymphocytes % (auto) 21.6 %; Mean Corpuscular Hemoglobin 21.9 pg (25.0-34.0); Mean Corpuscular Hgb Conc 31.7 g/dL (32.0-36.0); Mean Corpuscular Volume 69.3 fL (80.0-100.0); Monocytes # (auto) 0.83 K/uL (0.11-0.59); Monocytes % (auto) 15.7 %; Neutrophils # (auto) 3.08 K/uL (1.40-6.50); Neutrophils % (auto) 58.5 %; RDW Coefficient of Variation 15.2 % (11.5-14.5); RDW Standard Deviation 37.8 fL (36.4-46.3); Red Blood Count 3.74 M/uL (4.70-6.10); White Blood Count 5.27 K/ul (4.8-10.8)
[2025-01-20 07:53] LABS: Albumin Globulin Ratio 0.7 (0.9-2); Albumin Level 3.2 gm/dl (3.4-5.0); BUN Creatinine Ratio 32.8 (10-20); Bilirubin,Total 0.2 mg/dl (0.2-1.0); Calcium 8.6 mg/dl (8.6-10.3); Creatinine Clr Calc Pharmacy 119.1 ml/min; Globulin 4.6 gm/dl (2.5-4.0); Potassium 4.2 mmol/L (3.5-5.1); Total Protein 7.8 gm/dl (6.0-8.3)
--- NOTE | 2025-01-20 07:58 | Hospitalist Progress Note ---
Date of Service January 20, 2025 Assessment & Plan (1) Acute hyponatremia: (2) Acute hyperkalemia: (3) COPD (chronic obstructive pulmonary disease): (4) Hyperlipidemia: (5) Anemia: (6) T2DM (type 2 diabetes mellitus): (7) Mood disorder: Plan 59 yo male PMHx T2DM, bipolar disorder, hypothyroidism, COPD, GERD presents from [facility] for ~one week history of dizziness, GARCIA, and fatigue found to to have lab abnormalities. #Cellulitis of buttocks - extensive evaluation as noted without WBC. 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 Hopefully back tomorrow. #Hyperkalemia -Potassium today: 4.5 - Will continue to monitor # Iron deficiency Anemia -Denies hematuria, melena hematochezia or hematemesis -HGb improved to 9.1 #Transaminase -Denies abdominal pain, N/V -US liver: normal -Labs improving -Suspect associated with Depakote. Hold Depakote -Trend daily #Mood Disorder Continue Lamictal Depakote held as above Continue home hydroxyzine, mirtazapine #T2DM -Continue metformin #COPD -Continue home inhalers, montelukast #GERD -Continue pantoprazole #Hypothyroidism -Continue Synthroid FENGI: T2DM diet, fluid restriction 1L Code status: full code DVT prophylaxis: Lovenox Isolation: none Disposition: PCU Admission and Anticipated Discharge Date Admission Date: January 15, 2025 Supervising Physician Co-Signing Physician Notes I personally examined the patient and verified all rios points of history and exam, discussed case, and agree with decision making with Dr Hinkle feels pretty good, appetite better no acute complaints. Vitals noted, in general he is awake and alert pleasant no distress. HEENT normocephalic atraumatic mucous membranes moist. Breathing unlabored no accessory muscle use good effort. Skin without rashes pallor or icterus. Neuro no focal deficits. Labs and diagnostics noted. Febrile illness - extensive evaluationRight now possible cellulitis of his buttocks as the working diagnosis. Given no leukopenia or thrombocytopenia I doubt tickborne, but obviously keep on the differential, hep A and B are pending, hep C and HIV are negative. Fever resolved. May also have simply been nonspecific viral illness. Hyponatremia, severe - improved following 4x hypertonic saline bolus. SIADH versus poor p.o. intake versus both. Now eating better. Continue to follow. up to 126 today. increase salt tabs, depakote was for insomnia per pt (notes he has bipolar but believes other meds are his mood stabilizers) - will just dc; if other meds needed for insomnia then consider trazodone but also would follow BMP closely with any med changes for now Hyperkalemia - Resolved Iron deficiency anemia, unknown cause - FOBT pending. Consider evaluation for celiac disease if FOBT WNL Transaminitis - unknown etiology, RUQ US as noted. few hepatitis serologies pending, hep C negative. Follow-up liver enzymes improving Else see resident documentation as noted. Subjective No events overnight. Pt resting comfortably in bed. [employer] guards by bedside. States he is feeling a lot better .Headache is lot better . Denies chest pain, shortness of breath or drowsiness. Review of Systems Review of Systems: As per HPI Physical Exam Constitutional: WD/WN, vitals as above well developed; no acute distress Eyes: PERRL, conjunctivae normal, anicteric sclerae ENMT: external ear and nose normal, oropharynx normal Ears: no hearing impairment Neck: trachea midline, no thyromegaly trachea midline Respiratory: normal respiratory effort, lungs clear to auscultation normal respiratory effort and + respiratory distress; no labored breathing and no retractions Auscultation: lungs clear to auscultation bilaterally Cardiovascular: RRR, no murmur, no edema Rate/Rhythm: regular rate and regular rhythm Chest (Breasts): normal inspection/palpation of breasts Chest: normal inspection of chest Results & Data Results & Data Vital Signs (Past 12 Hours) Vital Signs Temp Pulse Resp BP BP Pulse Ox O2 Del Method 01/20/25 07:42 36.9 C 88 16 115/73 98 Room Air 01/19/25 22:48 37 C 93 H 16 118/68 97 Room Air 01/19/25 22:45 Room Air 04/21/25 20:10 Room Air
[2025-01-20 08:05] LABS: Mean Platelet Volume 8.4 fL (9.4-12.4); Platelet Count 421 K/uL (130-400)
[2025-01-20 08:09] LABS: Hypochromasia Present; Microcytosis Present; Polychromasia 1+
[2025-01-20 10:28] LABS: Hepatitis A Antibody IgM NON-REACTIVE (NON-REACTIVE); Hepatitis B Core Antibody IgM NON-REACTIVE (NON-REACTIVE)
--- NOTE | 2025-01-20 12:57 | Billing Data ---
Date of Service January 20, 2025 Coding Level of Care Code 41805 SUB INP/OBS CARE
[2025-01-20] MEDS: SODIUM CHLORIDE 1 GM TABLET PO SCH (21:02)
[2025-01-21 06:22] LABS: Basophils # (auto) 0.09 K/uL (0.00-0.20); Basophils % (auto) 1.9 %; Eosinophils # (auto) 0.03 K/uL (0.00-0.50); Eosinophils % (auto) 0.6 %; Hematocrit (blood only) 26.3 % (42.0-52.0); Hemoglobin 8.4 g/dl (14.0-18.0); Immature Granulocytes # (auto) 0.05 K/uL (0.01-0.20); Immature Granulocytes % (auto) 1.1 %; Lymphocytes # (auto) 1.03 K/uL (1.20-3.40); Lymphocytes % (auto) 22.1 %; Mean Corpuscular Hemoglobin 22.2 pg (25.0-34.0); Mean Corpuscular Hgb Conc 31.9 g/dL (32.0-36.0); Mean Corpuscular Volume 69.6 fL (80.0-100.0); Monocytes # (auto) 0.65 K/uL (0.11-0.59); Monocytes % (auto) 13.9 %; Neutrophils # (auto) 2.81 K/uL (1.40-6.50); Neutrophils % (auto) 60.4 %; RDW Coefficient of Variation 15.5 % (11.5-14.5); RDW Standard Deviation 38.5 fL (36.4-46.3); Red Blood Count 3.78 M/uL (4.70-6.10); White Blood Count 4.66 K/ul (4.8-10.8)
[2025-01-21 06:34] LABS: Mean Platelet Volume 8.2 fL (9.4-12.4); Platelet Count 403 K/uL (130-400)
[2025-01-21 06:47] LABS: Microcytosis Present; Polychromasia 1+
[2025-01-21 06:52] LABS: Albumin Globulin Ratio 0.7 (0.9-2); Albumin Level 3.2 gm/dl (3.4-5.0); BUN Creatinine Ratio 27.5 (10-20); Bilirubin,Total 0.2 mg/dl (0.2-1.0); Calcium 8.6 mg/dl (8.6-10.3); Creatinine Clr Calc Pharmacy 110.4 ml/min; Globulin 4.6 gm/dl (2.5-4.0); Potassium 4.2 mmol/L (3.5-5.1); Total Protein 7.8 gm/dl (6.0-8.3)
[2025-01-21 07:56] VITALS: RESP 16; TEMP 99; O2SAT 97
--- NOTE | 2025-01-21 08:24 | Hospitalist Progress Note ---
Date of Service January 21, 2025 Assessment & Plan (1) Acute hyponatremia: (2) Acute hyperkalemia: (3) COPD (chronic obstructive pulmonary disease): (4) Hyperlipidemia: (5) Anemia: (6) T2DM (type 2 diabetes mellitus): (7) Mood disorder: Plan 59 yo male PMHx T2DM, bipolar disorder, hypothyroidism, COPD, GERD presents from [facility] for ~one week history of dizziness, GARCIA, and fatigue found to to have lab abnormalities. #Cellulitis of buttocks - extensive evaluation as noted without WBC. 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 Hopefully back tomorrow. #Hyperkalemia -Potassium today: 4.5 - Will continue to monitor # Iron deficiency Anemia -Denies hematuria, melena hematochezia or hematemesis -HGb improved to 9.1 #Transaminase -Denies abdominal pain, N/V -US liver: normal -Labs improving -Suspect associated with Depakote. Hold Depakote -Trend daily #Mood Disorder Continue Lamictal Depakote held as above Continue home hydroxyzine, mirtazapine #T2DM -Continue metformin #COPD -Continue home inhalers, montelukast #GERD -Continue pantoprazole #Hypothyroidism -Continue Synthroid FENGI: T2DM diet, fluid restriction 1L Code status: full code DVT prophylaxis: Lovenox Isolation: none Disposition: PCU Admission and Anticipated Discharge Date Admission Date: January 15, 2025 Subjective No events overnight. Pt resting comfortably in bed. [facility] guards by bedside. States he is feeling a lot better .Headache is lot better . Denies chest pain, shortness of breath or drowsiness. Review of Systems Review of Systems: As per HPI Physical Exam Constitutional: WD/WN, vitals as above well developed; no acute distress Eyes: PERRL, conjunctivae normal, anicteric sclerae ENMT: external ear and nose normal, oropharynx normal Ears: no hearing impairment Neck: trachea midline, no thyromegaly trachea midline Respiratory: normal respiratory effort, lungs clear to auscultation normal respiratory effort and + respiratory distress; no labored breathing and no retractions Auscultation: lungs clear to auscultation bilaterally Cardiovascular: RRR, no murmur, no edema Rate/Rhythm: regular rate and regular rhythm Chest (Breasts): normal inspection/palpation of breasts Chest: normal inspection of chest Results & Data Results & Data Vital Signs (Past 12 Hours) Vital Signs Temp Pulse Resp BP Pulse Ox O2 Del Method 01/21/25 07:54 37.2 C 84 16 114/70 97 Room Air 01/20/25 21:00 Room Air
[2025-01-21 13:18] VITALS: BP 135/74; PULSE 81
--- NOTE | 2025-01-21 17:31 | Discharge Summary ---
Discharge Summary Date of Service January 21, 2025 Principal Dx & Hospital Course #1 = Principal Diagnosis (1) Acute hyponatremia: (2) Acute hyperkalemia: (3) COPD (chronic obstructive pulmonary disease): (4) Hyperlipidemia: (5) Anemia: (6) T2DM (type 2 diabetes mellitus): (7) Mood disorder: Plan 59 yo male PMHx T2DM, bipolar disorder, hypothyroidism, COPD, GERD presents from [facility] for ~one week history of dizziness, GARCIA, and fatigue found to to have lab abnormalities. #Cellulitis of buttocks - improved nicely on ceftriaxone - exam today shows resolved infection - no need for further abx - HIV negative, hepatitis panel negative # Severe Hyponatremia -Lethargy, headache and dizziness for a week - seems to have been multifactorial - initially thought to be mostly SiADH related to depakote - managing as such helped - but then stalled out - revisit of HPI yielded about a month of poor PO intake raising the concern of low solute as well - PO intake improved and sodium rosenda more -then stalled at 126. pt has felt well all week - raising the question of some degree of baseline low Na / reset osmostat -stop depakote -follow PO intake and w/u further if poor PO intake recurs (since it happened transiently and resolved without intervention - suspecting either malaise from viral illnesses/post vaccine/both) -safe for discharge -since baseline Na not entirely clear - follow BMP weekly at least for short term future then once clearly stable range has been established probably follow every ~3 months or so / sooner if any clinical changes #Hyperkalemia -resolved # Iron deficiency Anemia -Denies hematuria, melena hematochezia or hematemesis -Hgb 8.4 -outpatient colo unless done recently #Transaminase -Denies abdominal pain, N/V -US liver: normal -Labs improving -viral vs depakote -f/u CMP ~1-2 weeks -depakote dc'd #Mood Disorder Continue Lamictal Depakote stopped as above Continue home hydroxyzine, mirtazapine #T2DM -Continue metformin #COPD -Continue home inhalers, montelukast #GERD -Continue pantoprazole #Hypothyroidism -Continue Synthroid stable for discharge --to do: weekly BMP for near future CMP ~1wks colo if not done recently Notes For Next Care Provider Medication Changes From Visit depakote stopped Admission HPI Per Admitting Provider 59 yo male PMHx T2DM, bipolar disorder, hypothyroidism, T2DM, COPD, GERD presents from [facility] for ~one week history of dizziness, GARCIA, and fatigue found to to have lab abnormalities. Had labs checked at the half-way one week ago and was found to be hyponatremic. States that he had been in his usual state of health without dietary or medication changes. ED course: Found to be hyponatremic, hyperkalemic, hypochloremic, transaminitis and with thrombocytosis on labs. EKG without changes Updated Medication List Medication Instructions Recorded Confirmed Type acetaminophen 500 mg tablet 1,000 mg PO BID 01/15/25 01/15/25 History albuterol sulfate 90 mcg/actuation 2 puff inhalation QID PRN 01/15/25 01/15/25 History aerosol inhaler DIRECTED aspirin 325 mg tablet 325 mg PO DAILY 01/15/25 01/15/25 History calcium 600 mg (as 1 tab PO BID 01/15/25 01/15/25 History carbonate)-vitamin D3 10 mcg (400 unit) tablet (Calcium 600 + D(3)) capsaicin 0.025 % topical cream 1 applic topical BID PRN Pain 01/15/25 01/15/25 History ciclesonide 160 mcg/actuation 1 puff inhalation BID 01/15/25 01/15/25 History aerosol inhaler (Alvesco) diclofenac sodium 100 mg 100 mg PO BID PRN Pain 01/15/25 01/15/25 History tablet,extended release 24 hr docusate sodium 100 mg capsule 100 mg PO BID 01/15/25 01/15/25 History duloxetine 60 mg capsule,delayed 60 mg PO HS 01/15/25 01/15/25 History release hydroxyzine pamoate 50 mg capsule 150 mg PO HS 01/15/25 01/15/25 History lamotrigine 25 mg tablet (Lamictal) 25 mg PO DAILY 01/15/25 01/15/25 History levothyroxine 100 mcg tablet 100 mcg PO QAM 01/15/25 01/15/25 History levothyroxine 75 mcg tablet 75 mcg PO QAM 01/15/25 01/15/25 History metformin 1,000 mg tablet 1,000 mg PO BID 01/15/25 01/15/25 History metformin 500 mg tablet 500 mg PO .DAILY AT NOON 01/15/25 01/15/25 History mirtazapine 15 mg tablet 15 mg PO HS 01/15/25 01/15/25 History montelukast 10 mg tablet 10 mg PO DAILY 01/15/25 01/15/25 History pantoprazole 40 mg tablet,delayed 40 mg PO DAILY 01/15/25 01/15/25 History release tamsulosin 0.4 mg capsule 0.4 mg PO QPM 01/15/25 01/15/25 History umeclidinium 62.5 mcg/actuation 1 inh inhalation DAILY 01/15/25 01/15/25 History blister powder for inhalation (Incruse Ellipta) sodium chloride 1,000 mg soluble 2,000 mg (2 x 1,000 mg) PO BID 30 01/21/25 Rx tablet days #120 tabs Hospital Stay Data Consultations 01/15/25 19:52 ED Decision to Admit Stat Diagnostic Imagining Performed 01/16/25 07:00 US liver Routine Pending Results Patient Have Any Pending Studies at Discharge: No Discharge Instructions Given to Patient (Per Discharging Provider) You were admitted to the hospital for severe hyponatremia. We stopped your Depakote and put you on salt tabs which improved your hyponatremia. A discharge summary will be sent to your primary care physician to ensure continuity of care. Please bring this discharge summary with you to your next of fice appointment so that your provider can review it at that time. Follow-up appointments: * Make a follow-up appointment with your PCP within the next week. It is very important that you follow up with them shortly after discharge from the hospital. * Keep all your follow-up appointments as already scheduled. If you cannot make an appointment, notify your provider. Medications: Your medication list has been reviewed and reconciled upon discharge to ensure accuracy and continuity of care. An updated list of all your medications is included with your hospital discharge paperwork. Please review this list closely, and make note of any changes. * Please stop your Depakote. This medication has been contributing to your hyponatremia. * We prescribed a new medication for you. Take sodium chloride 1000 mg twice daily. You should follow-up with your PCP about how long to be on this medication. * If you have any issues filling these prescriptions, please call [phone] and ask to leave a message for Dr. Buza. * Take your medications as instructed; do not skip a dose of your medicines. Make sure all of your doctors know every medicine you are taking (including [id number] medicines, vitamins, and supplements). Call your primary care provider before taking any new medicines (including over- the-counter medicines, vitamins, and supplements), because some of these may interact with your current medications, or may make your symptoms worse. Tell your primary care provider if you cannot afford your medications. CONTACT YOUR PRIMARY CARE PROVIDER if you experience any of the following: * Worsening of symptoms * Fever, chills, or fatigue * Difficulty following your treatment plan, or difficulty taking medications CALL 911 OR GO TO THE EMERGENCY DEPARTMENT if you experience any of the following: * Sudden, severe abdominal pain or nausea/vomiting * Severe chest pain, or chest pain that radiates (moves) to your jaw or arm * Sudden, severe shortness of breath or difficulty breathing Thank you for allowing us to participate in your care. Total Time Total Time Spent Total Time Spent (In Minutes): <30
--- NOTE | 2025-01-21 17:41 | Billing Data ---
Date of Service January 21, 2025 Coding Level of Care Code 71609 IN/OBS DISCH 30 MIN/LESS
== END 2025-01-21 15:10 | DRG 644 ==
LOC: ED 17:34 → 2S 20:30 → SUATTDRO 20:30 → 2S 21:38 → 3N 01-19 18:17